=== PATIENT | male | born 1960 | race Two or more races ===

== ENCOUNTER → 2019-05-10 | Day surgery (SDC) | payer OTHER ==
[~2019-05-10] MED LIST: ATOR10TA60 PO; IV RINGERS,LACTATED 1000ML 1,000 ML IV SCH; LISI-338 PO; METF500T16 PO; PROPOFOL 40 ML IV ONE
--- NOTE | 2019-05-10 09:09 | CONS ---
DATE OF CONSULTATION: GI CONSULTATION REFERRING PHYSICIAN: Leighton Carroll MD REASON FOR CONSULTATION: Colorectal screening. HISTORY OF PRESENT ILLNESS: This is a 58-year-old male with past medical history significant for hyperlipidemia and diabetes, seen for screening colon exam. Family history is positive for colon cancer with his father in his early 70s. Denies any bleeding, diarrhea, constipation, change in weight or appetite. No previous studies have been performed. He is otherwise without additional complaints. PAST MEDICAL HISTORY: Diabetes, hypertension. PAST SURGICAL HISTORY: Status post neck cyst excision. ALLERGIES: None. MEDICATIONS: Include atorvastatin 10 mg daily, lisinopril 5 mg daily, metformin 500 mg daily. SOCIAL HISTORY: Nondrinker, nonsmoker. FAMILY HISTORY: Significant for colon cancer with his father. REVIEW OF SYSTEMS: HEENT: There is no decrease in visual acuity issues. CARDIAC: No history of hypertension, palpitations, syncope. PULMONARY: No shortness breath, productive cough, asthma. RENAL: No dysuria, frequency, hematuria. NEUROLOGIC: No stroke, migraine, neuropathy. PSYCHIATRIC: No mood swings, depression, insomnia. GASTROINTESTINAL: See history of present illness. DERMATOLOGIC: No skin rashes or pruritus. ENDOCRINE: History of diabetes and hyperlipidemia. MUSCULOSKELETAL: No history of osteoarthrosis, arthralgias, myalgias. PHYSICAL EXAMINATION: GENERAL: A well-nourished, well-developed male. VITAL SIGNS: Temperature 98.4, pulse 67, respirations 20. HEENT: Normocephalic, atraumatic head. Pupils and extraocular muscles are not tested. Sclerae are icteric. NECK: Supple. LUNGS: Clear. CARDIOVASCULAR: Reveals an S1, S2 without S3, S4 or appreciable murmur. ABDOMEN: Soft abdomen, normal bowel sounds without appreciable hepatosplenomegaly. EXTREMITIES: Reveals no cyanosis, clubbing or edema. IMPRESSION: Colorectal screening is warranted at this time. Risks and benefits of procedure including risk of hemorrhage and perforation during the operation have been discussed. The patient is willing to proceed. EH NELSON MD DR: DOUGIE/floresita JOB#: [id number] / [id number]
[2019-05-10 09:30] VITALS: BP 114/73
--- NOTE | 2019-05-13 12:06 | PATHOLOGY ---
[facility] Accession Number: [id number] . 01 Material submitted: . PART A: colon - ASCENDING COLON POLYPS. Modifiers: ascending PART B: colon - SIGMOID POLYP. Modifiers: sigmoid . 01 Clinical history: . Screening . 02 Diagnosis: A. Colon biopsies, ascending colon polyps: - Tubular adenoma (1). - Segment (1) of fecal material (skeletal muscle). . B. Colon biopsies, sigmoid polyp: - Tubular adenoma. (JPM:oly; 05/13/2019) QMS/05/13/2019 . 02 Comment: There is no high-grade dysplasia or evidence of malignancy. (JPM:oly; 05/13/2019) . 02 Electronically signed: . Markus Mcfarlane MD, Pathologist NPI- [id number] . 01 Gross description: . A. The specimen is received in formalin, labeled "Berger, Rad, ascending colon polyps" and consists of 2 fragments of pink-duncan tissue measuring 0.4 x 0.3 x 0.2 cm and 0.6 x 0.5 x 0.3 cm. The larger is inked, bisected and they are entirely submitted in A1. . B. The specimen is received in formalin, labeled "Berger, Rad, sigmoid polyp" and consists of 2 fragments of pink-duncan tissue measuring 0.3 x 0.3 x 0.1 cm and 0.6 x 0.6 x 0.2 cm which are entirely submitted in B1. (SDY; 05/10/2019) SYU/SYU . 02 Pathologist provided ICD-10: D12.2, D12.5 . 02 CPT . 438006, [id number] Specimen Comment: A courtesy copy of this report has been sent to Specimen Comment: [phone], . Specimen Comment: Report sent to / DR LINDA Performed at: [address], [place] [id number] MD Nadir Plascencia MD Phone: [phone] Performed at: [facility] [address] [place], [place] [id number] MD Markus Mcfarlane MD Phone: [phone]
== END ==
LOC: SURG 07:52
PROVIDERS: ATTEND Internal Medicine Gastroenterology
DX: Z12.11 Encounter for screening for malignant neoplasm of colon (principal); D12.2 Benign neoplasm of ascending colon; D12.5 Benign neoplasm of sigmoid colon; K64.0 First degree hemorrhoids; E78.5 Hyperlipidemia, unspecified; E11.9 Type 2 diabetes mellitus without complications; Z80.0 Family history of malignant neoplasm of digestive organs
CPT/HCPCS: 45385; 88305; J2704; 45380